=== PATIENT | female | born 1970 | race Caucasian/White ===

== ENCOUNTER 2016-10-10 11:59 | Emergency (ER) | payer BC ==
[~2016-10-10] VITALS: Ht 160 cm; Wt 61.7 kg
[2016-10-10 12:02] VITALS: BP 166/98
--- NOTE | 2016-10-10 12:29 | PHYS DOC ---
Past Medical History Past Medical History: No Pertinent History Past Surgical History: Tubal ligation Alcohol Use: Rarely Drug Use: None Adult General Chief Complaint Chief Complaint: [facility] HPI Patient is a 46 year old female presents emergency Department today with complaint of right elbow and right shoulder pain secondary to a slip and fall off the arm of the couch 2 nights ago. Patient I striking her head or loss of consciousness. Patient denies any previous injury of her right shoulder or right elbow. She denies any history of bone forming disorders/diseases. Patient is right-hand dominant. Patient states eczema to work yesterday and tried performing her job and was not able to do so. Patient states she currently does not have a primary care doctor. She denies any concerns for at this time. Review of Systems Review of Systems Constitutional: Denies fever or chills [] Eyes: Denies change in visual acuity, redness, or eye pain [] HENT: Denies nasal congestion or sore throat [] Respiratory: Denies cough or shortness of breath [] Cardiovascular: No additional information not addressed in HPI [] GI: Denies abdominal pain, nausea, vomiting, bloody stools or diarrhea [] : Denies dysuria or hematuria [] Musculoskeletal: Denies back pain or joint pain [] Integument: Denies rash or skin lesions [] Neurologic: Denies headache, focal weakness or sensory changes [] Endocrine: Denies polyuria or polydipsia [] Allergies Allergies Allergies Coded Allergies Type Severity Reaction Last Updated Verified No Known Drug Allergies 10/10/16 No Physical Exam Physical Exam Constitutional: Well developed, well nourished, no acute distress, non-toxic appearance. [] HENT: Normocephalic, atraumatic, bilateral external ears normal, oropharynx moist, no oral exudates, nose normal. Eyes: PERRLA, EOMI, conjunctiva normal, no discharge. [] Neck: Normal range of motion, no tenderness, supple, no stridor. Cardiovascular:Heart rate regular rhythm, no murmur [] Lungs & Thorax: Bilateral breath sounds clear to auscultation [] Abdomen: Bowel sounds normal, soft, no tenderness, no masses, no pulsatile masses. [] Skin: Warm, dry, no erythema, no rash. [] Back: No tenderness, no CVA tenderness. [] Extremities: Right shoulder is normal in appearance. There is pant tenderness to palpation over the dorsolateral aspect of the shoulder without palpable defect, deformity, instability or crepitus. She demonstrates full active range of motion with her right shoulder. Right elbow with a small abrasion to the lateral aspect. Patient's tenderness to palpation to the posterior lateral aspect of right shoulder without any palpable defect, deformity, instability or crepitus. Patient is able to flex extend, pronate and supinate. Right forearm, wrist and hand are normal in appearance and nontender palpation. Patient is neurovascularly intact distally with capillary refill less than 2 seconds in all 5 fingers. Neurologic: Alert and oriented X 3, normal motor function, normal sensory function, no focal deficits noted. [] Psychologic: Affect normal, judgement normal, mood normal. [] Current Patient Data Vital Signs Vital Signs Date Time Temp Pulse Resp B/P Pulse Ox O2 Delivery O2 Flow Rate FiO2 10/10/16 12:02 97.7 71 18 100 Room Air 97.7 EKG EKG [] Radiology/Procedures Radiology/[place] [address] IMAGING REPORT Signed PATIENT: SHIRA HERNDON ACCOUNT: [id number] : 1970 LOCATION: ER AGE: 46 SEX: F EXAM STATUS: PRE ER ORD. PHYSICIAN: JEFFREY RAHMAN REASON: pain after fall off couch 2 days ago PROCEDURE: SHOULDER 2+V RIGHT Right shoulder radiographs History: Fall off sofa 2 days earlier. Comparison: None. Findings: AP internal rotation, AP external rotation, and scapular Y-view of the right shoulder. No acute fracture or dislocation is identified. No significant degeneration is seen. Impression: No acute osseous abnormality identified. DICTATED and SIGNED BY: TRENA GANDHI MD DATE: 10/10/16 1251 CC: JEFFREY RAHMAN ~ [address] [address] IMAGING REPORT Signed PATIENT: SHIRA HERNDON ACCOUNT: [id number] : 1970 LOCATION: ER AGE: 46 SEX: F EXAM STATUS: REG ER ORD. PHYSICIAN: JEFFREY RAHMAN REASON: pain after fall off couch 2 days ago PROCEDURE: ELBOW RIGHT 3V Right elbow radiographs History: Trauma, fall 2 days earlier, pain. Comparison: None. Findings: AP, lateral, and oblique views of the right elbow. No acute fracture or dislocation is identified. No joint effusion is seen. Impression: No acute osseous traumatic injury identified. DICTATED and SIGNED BY: TRENA GANDHI MD DATE: 10/10/16 1252 CC: JEFFREY RAHMAN; NO PCP; NON,STAFF ~ Course & Med Decision Making Course & Med Decision Making Pertinent Labs and Imaging studies reviewed. (See chart for details) [] Dragon Disclaimer Dragon Disclaimer This electronic medical record was generated, in whole or in part, using a voice recognition dictation system. Departure Departure Impression: Primary Impression: Contusion of right shoulder Additional Impression: Contusion of right elbow Disposition: 01 HOME, SELF-CARE Condition: GOOD Patient Instructions: Elbow Contusion, [id number], Shoulder Pain, Easy-to- Read Additional Instructions: 1. The x-rays of your right shoulder and right elbow today are normal. 2. Review the discharge instructions provided for self-care and reasons to return the emergency department. 3. Take the medication as prescribed. 4. Follow-up with a primary care doctor's office within the next 7-10 days. If you do not have one, please use the pamphlet provided for assistance in finding one. Scripts Naproxen Sodium (Anaprox Ds)550 Mg [id number] Mg PO BID #20 Prov:JEFFREY RAHMAN 10/10/16 Problem Qualifiers JEFFREY RAHMAN Oct 10, 2016 12:29
--- NOTE | 2016-10-10 12:55 | RAD ---
Right shoulder radiographs History: Fall off sofa 2 days earlier. Comparison: None. Findings: AP internal rotation, AP external rotation, and scapular Y-view of the right shoulder. No acute fracture or dislocation is identified. No significant degeneration is seen. Impression: No acute osseous abnormality identified.
--- NOTE | 2016-10-10 12:56 | RAD ---
Right elbow radiographs History: Trauma, fall 2 days earlier, pain. Comparison: None. Findings: AP, lateral, and oblique views of the right elbow. No acute fracture or dislocation is identified. No joint effusion is seen. Impression: No acute osseous traumatic injury identified.
[2016-10-10] MEDS ORDERED: NAPR550T PO (13:12)
== END 2016-10-10 13:23 | disposition home or self-care (01) ==
LOC: ER 11:59
DX: S40.011A Contusion of right shoulder, initial encounter (principal); S50.01XA Contusion of right elbow, initial encounter; W08.XXXA Fall from other furniture, initial encounter; Y93.89 Activity, other specified; Y92.89 Other specified places as the place of occurrence of the external cause; Y99.8 Other external cause status
CPT/HCPCS: 73030; 73080; 99284